=== PATIENT | male | born 1930 | race Caucasian/White ===

== ENCOUNTER 2018-07-10 19:50 | Emergency (ER) | payer MEDICARE ==
[~2018-07-10 19:50] MED LIST: Albuterol/Ipratropium 3.0-0.5 MG/3 ML Neb Soln NEB ONE; methylPREDNISolone Sodium Succinate 125 MG/2 ML SDV ONE
[2018-07-10] MEDS ORDERED: Albuterol 0.083% 2.5 MG/3 ML Neb Soln NEB ONE (19:59)
[2018-07-10 20:19] LABS: BICARBONATE,ARTERIAL 26.9 mm/L (22.0-26.0); O2 DELIVERY DEVICE AEROSOL MASK; O2 SATURATION ARTERIAL 99 % (95-98); PCO2 ARTERIAL 40 mm/Hg0 (35-45); PO2 ARTERIAL 133 mm/Hg (80-100)
[2018-07-10] MEDS ORDERED: Magnesium Sulfate/D5W 2 GM in Premix Bag 1 BAG IV ONE (20:21)
[2018-07-10] MEDS ORDERED: cefTRIAXone 1 GM Vial IVPUSH SCH (20:30)
[2018-07-10] MEDS ORDERED: Azithromycin 500 MG in Sodium Chloride 0.9% 250 ML IV SCH (20:30)
--- NOTE | 2018-07-10 20:48 | EDM.PDOC ---
ED HPI GENERAL MEDICAL PROBLEM - General Chief Complaint: Respiratory Problem Stated Complaint: COPD exacerbation. Pt. reports sob that started today, denies any fever or chills but admits to coughing up phlegm. reports pt. has used his albuterol inhaler 5-6 times without improvement. Denies any history of CHF. Denies coming in contact with anything new today. 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) - Related Data Allergies Allergy/AdvReac Type Severity Reaction Status Date / Time No Known Allergies Allergy Verified 07/10/18 20:36 Home Meds: Home Meds Aspirin [Halfprin] 81 mg PO DAILY 10/30/13 [History] Budesonide/Formoterol [Symbicort 160-4.5 Mcg Inhaler] 2 puff IH BID 01/09/14 [ History] Lisinopril/Hydrochlorothiazide [Lisinopril-Hctz 20-12.5 mg Tab] 1 tab PO BID [History] Albuterol Sulfate [Proair Hfa] 1 inh INH ASDIRECTED 07/10/18 [History] Albuterol/Ipratropium [DuoNeb 3.0-0.5 MG/3 ML] 1 inh INH TID 07/10/18 [History] Past Medical History Respiratory History: Reports: COPD Oncologic (Cancer) History: Reports: Non-Hodgkin's Lymphoma Social & Family History - Family History Family Medical History: Noncontributory ED ROS GENERAL - Review of Systems Review Of Systems: See Below Constitutional: Reports: No Symptoms HEENT: Reports: No Symptoms Respiratory: Reports: Shortness of Breath, Wheezing, Cough, Sputum Cardiovascular: Reports: No Symptoms Endocrine: Reports: No Symptoms GI/Abdominal: Reports: No Symptoms Musculoskeletal: Reports: No Symptoms Skin: Reports: No Symptoms Neurological: Reports: No Symptoms Psychiatric: Reports: No Symptoms Hematologic/Lymphatic: Reports: No Symptoms Immunologic: Reports: No Symptoms ED EXAM, GENERAL - Physical Exam Exam: See Below Exam Limited By: No Limitations General Appearance: Alert, WD/WN, No Apparent Distress Nose: Normal Inspection, Normal Mucosa, No Blood, Nasal Flaring Throat/Mouth: Normal Inspection, Normal Lips, Normal Teeth, Normal Gums, Normal Oropharynx, Normal Voice, No Airway Compromise Head: Atraumatic, Normocephalic Neck: Normal Inspection, Supple, Non-Tender Respiratory/Chest: Respiratory Distress, Decreased Breath Sounds, Wheezing, Stridor, Accessory Muscle Use, Retractions Cardiovascular: Normal Peripheral Pulses, Regular Rate, Rhythm, No Edema, No Gallop, No JVD, No Murmur, No Rub GI/Abdominal: Normal Bowel Sounds, Soft, Non-Tender, No Organomegaly, No Distention, No Abnormal Bruit, No Mass, Pelvis Stable Extremities: Normal Inspection, Normal Range of Motion, Non-Tender, No Pedal Edema, Normal Capillary Refill Neurological: Alert, Oriented, CN II-XII Intact, Normal Cognition, Normal Gait, No Motor/Sensory Deficits Psychiatric: Normal Affect, Normal Mood Skin Exam: Warm, Dry, Intact, Normal Color, No Rash EKG INTERPRETATION EKG Date: 07/10/18 Time: 20:51 Rhythm: NSR [place]: LAD-Left [place] Deviation ST-T: Other (nonspecific ST and T wave abnormality) QT: Prolonged Comparison: NA - No Prior EKG Course - Vital Signs Text/Narrative:: Pt. initially struggling to breath using acessory muscles and gasping for breath. Given 3 Duonebs, IV Solumedrol, Mag sulfate 2 gms, Rocephin, and Azithromax IV and breathing improved. Sats remained 98-99% on RA. At midnight patient began having stridor and difficulty breathing again. In agreement with transfer to larger hospital with ICU and specialist. Last Recorded V/S: Last Vital Signs Temp 36.4 C 07/10/18 21:06 Pulse 83 07/10/18 21:28 Resp 18 07/10/18 21:28 BP 134/77 07/10/18 21:28 Pulse Ox 93 L 07/10/18 21:28 - Orders/Labs/Meds Orders: Active Orders 24 hr Category Date Time Status EKG Documentation Completion [RC] STAT Care 07/10/18 20:17 Active RT Aerosol Therapy [RC] ASDIRECTED Care 07/10/18 20:00 Active RT Aerosol Therapy [RC] ASDIRECTED Care 07/10/18 20:59 Active Telemetry Monitoring [Cardiac Monitoring] [RC] . Care 07/10/18 19:50 Active DIRECTED CTA Chest W WO Contrast [Ang Chest] [CT] Stat Exams 07/10/18 20:43 Taken Chest 2V [CR] Stat Exams 07/10/18 19:57 Taken CULTURE BLOOD [BC] Stat Lab 07/10/18 20:45 Received CULTURE BLOOD [BC] Stat Lab 07/10/18 20:50 Received Azithromycin [Zithromax] 500 mg Med 07/10/18 20:30 Active Sodium Chloride 0.9% [Normal Saline] 250 ml IV Q24H cefTRIAXone [Rocephin] Med 07/10/18 20:30 Active 1 gm IVPUSH Q24H Blood Culture x2 Reflex Set [OM.PC] Stat Oth 07/10/18 20:31 Ordered Medication Orders Ceftriaxone Sodium (Rocephin) 1 gm IVPUSH Q24H YESENIA Last Admin: 07/10/18 20:43 Dose: 1 gm Azithromycin 500 mg/ Sodium (Chloride) 250 mls @ 250 mls/hr IV Q24H [facility] Last Admin: 07/10/18 20:43 Dose: 250 mls/hr Labs: Laboratory Tests 07/10/18 07/10/18 07/10/18 Range/Units 20:00 20:00 20:00 WBC 99.5 H* (5.0-10.0) 10^3/uL RBC 4.72 (4.50-6.00) 10^6/uL Hgb 13.8 L (14.0-18.0) g/dL Hct 41.9 (40.0-54.0) % MCV 88.8 (82.0-94.0) fL MCH 29.2 (27.0-32.0) pg MCHC 32.9 L (33.0-38.0) g/dL RDW Coeff of Manjinder 14.7 (11.0-15.0) % Plt Count 189 (150-400) 10^3/uL Add Manual Diff Yes Neutrophils % (Manual) 5 L (35-85) % Lymphocytes % (Manual) 94 H (21-55) % Monocytes % (Manual) 1 L (2-12) % Absolute Neutrophils 4.98 (1.80-7.00) 10^3/uL Lymphocytes # (Manual) 93.53 H (1.00-4.80) 10^3/uL Monocytes # (Manual) 1.00 H (0.00-0.80) 10^3/uL Smudge Cells Moderate H (NOT SEEN) D-Dimer, Quantitative 0.56 H (0.00-0.50) ABG pH (7.35-7.45) ABG pCO2 (35-45) mm/Hg0 ABG pO2 (80-100) mm/Hg ABG HCO3 (22.0-26.0) mm/L ABG O2 Saturation (95-98) % ABG Base Excess (-2.0-3.0) O2 Delivery Device Sodium 142 (136-145) mEq/L Potassium 3.7 (3.5-5.0) mEq/L Chloride 103 (98-106) mEq/L Carbon Dioxide 28 (21-32) mmol/L BUN 24 H (7-18) mg/dL Creatinine 1.5 H (0.7-1.3) mg/dL Est Cr Clr Drug Dosing 32.44 mL/min Estimated GFR (MDRD) 44 L (>=60) mL/min Glucose 122 H D (75-99) mg/dL Lactic Acid (0.4-2.0) mmol/L Calcium 8.6 (8.4-10.1) mg/dL Total Bilirubin 0.4 (0.0-1.0) mg/dL AST 20 (15-37) U/L ALT 33 (12-78) U/L Alkaline Phosphatase 103 (46-116) U/L Troponin I (0.00-0.06) ng/mL NT-Pro-B Natriuret Pep (0-1000) pg/mL Total Protein 7.3 (6.4-8.2) g/dL Albumin 3.9 (3.4-5.0) g/dL 07/10/18 07/10/18 07/10/18 Range/Units 20:00 20:05 20:29 WBC (5.0-10.0) 10^3/uL RBC (4.50-6.00) 10^6/uL Hgb (14.0-18.0) g/dL Hct (40.0-54.0) % MCV (82.0-94.0) fL MCH (27.0-32.0) pg MCHC (33.0-38.0) g/dL RDW Coeff of Manjinder (11.0-15.0) % Plt Count (150-400) 10^3/uL Add Manual Diff Neutrophils % (Manual) (35-85) % Lymphocytes % (Manual) (21-55) % Monocytes % (Manual) (2-12) % Absolute Neutrophils (1.80-7.00) 10^3/uL Lymphocytes # (Manual) (1.00-4.80) 10^3/uL Monocytes # (Manual) (0.00-0.80) 10^3/uL Smudge Cells (NOT SEEN) D-Dimer, Quantitative (0.00-0.50) ABG pH 7.44 (7.35-7.45) ABG pCO2 40 (35-45) mm/Hg0 ABG pO2 133 H (80-100) mm/Hg ABG HCO3 26.9 H (22.0-26.0) mm/L ABG O2 Saturation 99 H (95-98) % ABG Base Excess 3.0 (-2.0-3.0) O2 Delivery Device Aerosol mask Sodium (136-145) mEq/L Potassium (3.5-5.0) mEq/L Chloride (98-106) mEq/L Carbon Dioxide (21-32) mmol/L BUN (7-18) mg/dL Creatinine (0.7-1.3) mg/dL Est Cr Clr Drug Dosing mL/min Estimated GFR (MDRD) (>=60) mL/min Glucose (75-99) mg/dL Lactic Acid 1.4 (0.4-2.0) mmol/L Calcium (8.4-10.1) mg/dL Total Bilirubin (0.0-1.0) mg/dL AST (15-37) U/L ALT (12-78) U/L Alkaline Phosphatase (46-116) U/L Troponin I < 0.017 (0.00-0.06) ng/mL NT-Pro-B Natriuret Pep 71 (0-1000) pg/mL Total Protein (6.4-8.2) g/dL Albumin (3.4-5.0) g/dL Meds: Medications Generic Name Dose Route Start Last Admin Trade Name Freq PRN Reason Stop Dose Admin Ceftriaxone Sodium 1 gm 07/10/18 20:30 07/10/18 20:43 Rocephin IVPUSH 1 gm Q24H YESENIA Administration Azithromycin 500 mg/ Sodium 250 mls @ 250 mls/hr 07/10/18 20:30 07/10/18 20: 43 Chloride IV 250 mls/hr Q24H YESENIA Administration Discontinued Medications Generic Name Dose Route Start Last Admin Trade Name Bobby PRN Reason Stop Dose Admin Albuterol 2.5 mg 07/10/18 19:59 07/10/18 20:30 Proventil Neb Soln NEB 07/10/18 20:00 2.5 mg ONETIME ONE Administration Albuterol/Ipratropium 9 ml 07/10/18 19:50 07/10/18 19:50 Duoneb 3.0-0.5 Mg/3 Ml NEB 07/10/18 19:51 9 ml ONETIME ONE Administration Albuterol/Ipratropium Confirm 07/10/18 23:25 Duoneb 3.0-0.5 Mg/3 Ml Administered 07/10/18 23:26 Dose 3 ml .ROUTE .STK-MED ONE Magnesium Sulfate/Dextrose 2 200 mls @ 100 mls/hr 07/10/18 20:21 07/10/18 20: 30 gm/ Premix IV 07/10/18 22:20 100 mls/hr ONETIME ONE Administration Iopamidol 100 ml 07/10/18 20:49 07/10/18 20:56 Isovue-370 (76%) IVPUSH 07/10/18 20:50 100 ml ONETIME ONE Administration Methylprednisolone Sodium Succinate Confirm 07/10/18 19:44 07/10/18 20:30 Solu-Medrol Administered 07/10/18 19:45 125 mg Dose Administration 125 mg .ROUTE .STK-MED ONE Methylprednisolone Sodium Succinate Confirm 07/10/18 23:47 Solu-Medrol Administered 07/10/18 23:48 Dose 125 mg .ROUTE .STK-MED ONE - Radiology Interpretation Free Text/Narrative:: CXR: hyperinflation without infiltrate. CT Results Date: 07/10/18 (CTA: no pulmonary embolus; prominent mediastinal and hilar lymph nodes) CT Results Time: 23:51 Departure - Departure Time of Disposition: 00:01 Disposition: DC/Tfer to Acute Hospital 02 Condition: Fair Clinical Impression: COPD exacerbation, Lymphadenopathy - Discharge Information *PRESCRIPTION DRUG MONITORING PROGRAM REVIEWED*: Not Applicable *COPY OF PRESCRIPTION DRUG MONITORING REPORT IN PATIENT JOEY: Not Applicable Referrals: Mariam Fernandez PA-C [Primary Care Provider] - Forms: ED Department Discharge - Problem List & Annotations (1) COPD exacerbation SNOMED Code(s): 441196469 Code(s): J44.1 - CHRONIC OBSTRUCTIVE PULMONARY DISEASE W (ACUTE) EXACERBATION Status: Acute Current Visit: Yes - My Orders Last 24 Hours: My Active Orders 07/10/18 19:50 Telemetry Monitoring [Cardiac Monitoring] [RC] . DIRECTED 07/10/18 19:57 Chest 2V [CR] Stat 07/10/18 20:00 RT Aerosol Therapy [RC] ASDIRECTED 07/10/18 20:17 EKG Documentation Completion [RC] STAT 07/10/18 20:30 Azithromycin [Zithromax] 500 mg Sodium Chloride 0.9% [Normal Saline] 250 ml IV Q24H cefTRIAXone [Rocephin] 1 gm IVPUSH Q24H 07/10/18 20:31 Blood Culture x2 Reflex Set [OM.PC] Stat 07/10/18 20:43 CTA Chest W WO Contrast [Ang Chest] [CT] Stat 07/10/18 20:45 CULTURE BLOOD [BC] Stat 07/10/18 20:50 CULTURE BLOOD [BC] Stat 07/10/18 20:59 RT Aerosol Therapy [RC] ASDIRECTED - Assessment/Plan Last 24 Hours: My Active Orders 07/10/18 19:50 Telemetry Monitoring [Cardiac Monitoring] [RC] . DIRECTED 07/10/18 19:57 Chest 2V [CR] Stat 07/10/18 20:00 RT Aerosol Therapy [RC] ASDIRECTED 07/10/18 20:17 EKG Documentation Completion [RC] STAT 07/10/18 20:30 Azithromycin [Zithromax] 500 mg Sodium Chloride 0.9% [Normal Saline] 250 ml IV Q24H cefTRIAXone [Rocephin] 1 gm IVPUSH Q24H 07/10/18 20:31 Blood Culture x2 Reflex Set [OM.PC] Stat 07/10/18 20:43 CTA Chest W WO Contrast [Ang Chest] [CT] Stat 07/10/18 20:45 CULTURE BLOOD [BC] Stat 07/10/18 20:50 CULTURE BLOOD [BC] Stat 07/10/18 20:59 RT Aerosol Therapy [RC] ASDIRECTED Assessment:: COPD exacerbation Hx of non hodgkins lymphoma Prominent mediastinal and axillary lymph nodes. Plan: Will transfer to tertiary care center with ICU capability and specialist ie. Pulmonology, Oncology where patient can have further workup. Discussed benefits and risk of transfer including worsening condition, MVA, and patient verbalizes understanding. Patient accepted by Dr. Saldana, hospitalist at [facility].
[2018-07-10] MEDS ORDERED: Iopamidol 755 Mg/ML 100 ML Bottle IVPUSH ONE (20:49)
[2018-07-10] MEDS: Albuterol/Ipratropium 3.0-0.5 MG/3 ML Neb Soln ONE (23:44)
[2018-07-10] MEDS ORDERED: methylPREDNISolone Sodium Succinate 125 MG/2 ML SDV ONE (23:47)
[2018-07-11] MEDS ORDERED: Albuterol/Ipratropium 3.0-0.5 MG/3 ML Neb Soln NEB ONE (00:10)
[2018-07-11] MEDS ORDERED: methylPREDNISolone Sodium Succinate 125 MG/2 ML SDV IVPUSH SCH (00:15)
[2018-07-11 00:34] LABS: BICARBONATE,ARTERIAL 21.3 mm/L (22.0-26.0); O2 DELIVERY DEVICE ROOM AIR; O2 SATURATION ARTERIAL 92 % (95-98); PCO2 ARTERIAL 32 mm/Hg0 (35-45); PO2 ARTERIAL 62 mm/Hg (80-100)
[2018-07-11] MEDS: Albuterol/Ipratropium 3.0-0.5 MG/3 ML Neb Soln ONE (01:10)
== END 2018-07-11 00:30 ==
LOC: CC.ED 19:50
DX: J44.1 Chronic obstructive pulmonary disease with (acute) exacerbation (principal); R59.1 Generalized enlarged lymph nodes; Z79.82 Long term (current) use of aspirin
CPT/HCPCS: 36415; 36600; 71046; 71275; 80053; 82803; 83605; 83880; 84484; 85025; 85379; 87040; 93005; 93010; 94640; 96365; 96366; 96375; 96376; 99284; 99285; J0456; J0696; J2930; J3475; J7050; Q9967; J7613-GY; J7620-GY

== ENCOUNTER 2020-01-08 01:24 | Inpatient (IN) | payer MEDICARE, OTHER ==
[~2020-01-08 01:24] MED LIST changes: +Albuterol 8 GM Inhaler INH ONE; -Albuterol/Ipratropium 3.0-0.5 MG/3 ML Neb Soln NEB ONE; -methylPREDNISolone Sodium Succinate 125 MG/2 ML SDV ONE
[2020-01-08] MEDS ORDERED: Albuterol 8 GM Inhaler INH STA (01:32)
[2020-01-08] MEDS ORDERED: Aminophylline 250 MG/10 ML SDV IV ONE (01:51)
[2020-01-08] MEDS ORDERED: methylPREDNISolone Sodium Succinate 125 MG/2 ML SDV IVPUSH ONE (01:52)
[2020-01-08 01:56] LABS: O2 DELIVERY DEVICE ROOM AIR
--- NOTE | 2020-01-08 01:57 | EDM.PDOC ---
ED HPI GENERAL MEDICAL PROBLEM - General Chief Complaint: Respiratory Problem Stated Complaint: SOB Time Seen by Provider: 01/08/20 01:24 Source of Information: Reports: Patient, Family History Limitations: Reports: No Limitations - History of Present Illness INITIAL COMMENTS - FREE TEXT/NARRATIVE: Patient to the emergency department with his where he woke up complaining of severe shortness of breath just prior to arrival. The patient does have a history of COPD as well as non-Hodgkin's lymphoma. The patient advises that he did try to use his hand-held nebulizer treatment without success. The patient denies any chest pain pressure heaviness. He denies any ear, nose, or throat symptoms. He denies any fever chills he denies any recent travel and he denies being exposed to any ill people or anyone suspected of having COVID-19. The patient denies any abdominal pain no nausea vomiting he has had no diarrhea. Onset: Today, Sudden Location: Denies: Chest, Abdomen Severity: Severe Improves with: Reports: None Worsens with: Reports: None Associated Symptoms: Reports: Cough, Shortness of Breath. 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) (Attempted to use his hand-held nebulizer without success) - Related Data Allergies Allergy/AdvReac Type Severity Reaction Status Date / Time No Known Allergies Allergy Verified 07/10/18 20:36 Home Meds: Home Meds Budesonide/Formoterol [Symbicort 160-4.5 Mcg Inhaler] 2 puff IH BID 01/09/14 [ History] Lisinopril/Hydrochlorothiazide [Lisinopril-Hctz 20-12.5 mg Tab] 1 tab PO DAILY 01/09/14 [History] Albuterol Sulfate [Proair Hfa] 1 - 2 puff INH ASDIRECTED PRN 07/10/18 [History] Albuterol/Ipratropium [DuoNeb 3.0-0.5 MG/3 ML] 1 inh INH QID PRN 07/10/18 [ History] Past Medical History Cardiovascular History: Reports: Hypertension Respiratory History: Reports: COPD Musculoskeletal History: Reports: Back Pain, Chronic Oncologic (Cancer) History: Reports: Non-Hodgkin's Lymphoma - Past Surgical History Musculoskeletal Surgical History: Reports: Other (See Below) Other Musculoskeletal Surgeries/Procedures:: back surgery Social & Family History - Family History Family Medical History: Noncontributory - Tobacco Use Smoking Status *Q: Former Smoker Used Tobacco, but Quit: Yes Month/Year Tobacco Last Used: 30 yrs ago - Caffeine Use Caffeine Use: Reports: None - Living Situation & Occupation Living situation: Reports: , with Spouse Occupation: Retired ED ROS GENERAL - Review of Systems Review Of Systems: See Below Constitutional: Denies: Fever, Chills, Weakness HEENT: Reports: No Symptoms. Denies: Ear Pain, Nose Pain, Throat Pain Respiratory: Reports: Shortness of Breath, Wheezing, Cough Cardiovascular: Reports: No Symptoms. Denies: Chest Pain, Edema Endocrine: Reports: No Symptoms GI/Abdominal: Reports: No Symptoms. Denies: Abdominal Pain, Nausea, Vomiting Musculoskeletal: Reports: No Symptoms. Denies: Neck Pain, Back Pain Skin: Reports: No Symptoms. Denies: Bruising, Rash Neurological: Reports: No Symptoms. Denies: Confusion, Dizziness, Headache Psychiatric: Reports: No Symptoms ED EXAM, GENERAL - Physical Exam Exam: See Below Exam Limited By: No Limitations General Appearance: Alert, WD/WN, Moderate Distress Ears: Normal External Exam, Normal Canal, Normal TMs, Hearing Loss (Patient has bilateral hearing aids) Nose: Normal Inspection Throat/Mouth: Normal Inspection, Normal Lips, Normal Oropharynx, Normal Voice, No Airway Compromise Head: Atraumatic, Normocephalic Neck: Normal Inspection, Supple, Non-Tender, Full Range of Motion Respiratory/Chest: Respiratory Distress, Wheezing Cardiovascular: Normal Peripheral Pulses, Regular Rate, Rhythm Peripheral Pulses: 2+: Radial (L), Radial (R), Posterior Tibial (L), Posterior Tibial (R) GI/Abdominal: Soft, Non-Tender Back Exam: Normal Inspection, Full Range of Motion Extremities: Normal Inspection, Normal Range of Motion, Non-Tender, No Pedal Edema, Normal Capillary Refill. No: Pedro's Sign Neurological: Alert, Oriented, Normal Cognition, Normal Gait, No Motor/Sensory Deficits Psychiatric: Normal Affect, Anxious Skin Exam: Warm, Dry, Intact, Normal Color, No Rash EKG INTERPRETATION EKG Date: 01/08/20 Time: 01:30 Rhythm: NSR [place]: LAD-Left [place] Deviation P-Wave: Present QRS: Wide EKG Interpretation Comments: Twelve-lead EKG shows an underlying sinus tachycardia with a ventricular rate of 104 there is a left axis deviation as well as an incomplete left bundle branch block. There is significant amount of 60 cycle interference which makes this difficult to completely interpret. However there is no obvious ischemia or injury. There is 1 premature ventricular contraction. Course - Vital Signs Text/Narrative:: The patient was evaluated in the emergency department, the patient's white count is elevated at 13,000, general chemistries his blood sugar slightly elevated, potassium is down just a little bit at 3.3, magnesium is 1.6, and his PO2 is slightly down, see other lab works for complete details. Chest x-ray was completed and does not show any acute pneumonia. The patient is on O2 at 2 L nasal cannula with an oxygen saturation of 97%. Twelve-lead EKG showed a sinus tachycardia with a ventricular rate of 104. The patient was given Ventolin inhaler 2 puffs, Aminophyllin 250 mg IV over 30 minutes, and Solu- Medrol 125 mg IV push. The patient's lung sounds have improved and he appears to be resting more comfortable. I did discuss all of this with the patient's who is out in her vehicle and she understands and also agrees with admission as well as the the patient agrees with admission. The patient will be admitted with Rocephin 2 g IV now and 1 g every 24 hours he will also be given Solu-Medrol 80 mg every 8 hours as well as Ventolin MDI 4 times daily. The patient's treatment plan will be continuously evaluated and adjustments will be made as needed. The patient CBC does include smudge cells which the patient does have a history of non-Hodgkin's lymphoma. The patient's past medical history, past surgical history, past family medical history, social history is been reviewed see nursing notes for complete details Last Recorded V/S: Last Vital Signs Temp 36.8 C 01/08/20 01:43 Pulse 96 01/08/20 01:43 Resp 18 01/08/20 01:43 BP 151/99 H 01/08/20 01:43 Pulse Ox 95 01/08/20 01:43 - Orders/Labs/Meds Orders: Active Orders 24 hr Category Date Time Status EKG Documentation Completion [RC] STAT Care 01/08/20 01:30 Active RT Post Treatment Assessment [RC] Click to Edit Care 01/08/20 01:48 Active RT Pre-Treatment Assessment [RC] Click to Edit Care 01/08/20 01:48 Active Chest 1V Frontal [CR] Stat Exams 01/08/20 01:44 Ordered Aminophylline 250 mg Med 01/08/20 02:00 Active Sodium Chloride 0.9% [Normal Saline] 100 ml IV ONETIME EKG 12 Lead [EK] Stat Ther 01/08/20 01:46 Ordered Medication Orders Aminophylline 250 mg/ Sodium (Chloride) 110 mls @ 220 mls/hr IV ONETIME ONE Stop: 01/08/20 02:29 Last Admin: 01/08/20 02:11 Dose: 220 mls/hr Labs: Laboratory Tests 01/08/20 01/08/20 01/08/20 Range/Units 01:40 01:45 01:45 WBC 13.7 H (5.0-10.0) 10^3/uL RBC 5.00 (4.50-6.00) 10^6/uL Hgb 14.8 (14.0-18.0) g/dL Hct 43.2 (40.0-54.0) % MCV 86.4 (82.0-94.0) fL MCH 29.6 (27.0-32.0) pg MCHC 34.3 (33.0-38.0) g/dL RDW Coeff of Manjinder 13.8 (11.0-15.0) % Plt Count 181 (150-400) 10^3/uL Add Manual Diff Yes Neutrophils % (Manual) 11 L (35-85) % Band Neutrophils % 1 (0-5) % Lymphocytes % (Manual) 83 H (21-55) % Monocytes % (Manual) 2 (2-12) % Eosinophils % (Manual) 3 (0-5) % Smudge Cells Moderate H (NOT SEEN) ABG pH 7.44 (7.35-7.45) ABG pCO2 36 (35-45) mm/Hg0 ABG pO2 67 L (80-100) mm/Hg ABG HCO3 24.8 (22.0-26.0) mm/L ABG O2 Saturation 94 L (95-98) % ABG Base Excess 1.0 (-2.0-3.0) O2 Delivery Device Room air Sodium 142 (136-145) mEq/L Potassium 3.3 L (3.5-5.0) mEq/L Chloride 103 (98-106) mEq/L Carbon Dioxide 26 (21-32) mmol/L BUN 25 H (7-18) mg/dL Creatinine 1.1 (0.7-1.3) mg/dL Est Cr Clr Drug Dosing 43.18 mL/min Estimated GFR (MDRD) > 60 (>=60) mL/min Glucose 127 H (75-99) mg/dL Calcium 8.5 (8.4-10.1) mg/dL Magnesium 1.6 L (1.8-2.4) mg/dL Total Bilirubin 0.4 (0.0-1.0) mg/dL AST 17 (15-37) U/L ALT 25 (12-78) U/L Alkaline Phosphatase 128 H (46-116) U/L Troponin I < 0.017 (0.00-0.06) ng/mL NT-Pro-B Natriuret Pep 139 (0-1000) pg/mL Total Protein 7.1 (6.4-8.2) g/dL Albumin 3.8 (3.4-5.0) g/dL Meds: Medications Generic Name Dose Route Start Last Admin Trade Name Freq PRN Reason Stop Dose Admin Aminophylline 250 mg/ Sodium 110 mls @ 220 mls/hr 01/08/20 02:00 01/08/20 02: 11 Chloride IV 01/08/20 02:29 220 mls/hr ONETIME ONE Administration Discontinued Medications Generic Name Dose Route Start Last Admin Trade Name Freq PRN Reason Stop Dose Admin Albuterol Confirm 01/08/20 01:02 01/08/20 01:49 Ventolin Hfa Administered 01/08/20 01:03 Not Given Dose 8 gm INH .STK-MED ONE Albuterol 8 gm 01/08/20 01:32 01/08/20 01:32 Ventolin Hfa INH 01/08/20 01:33 2 puff STAT STA Administration Aminophylline 250 mg 01/08/20 01:51 Aminophylline IV 01/08/20 01:52 ONETIME ONE Methylprednisolone Sodium Succinate 125 mg 01/08/20 01:52 01/08/20 01:55 Solu-Medrol IVPUSH 01/08/20 01:53 125 mg ONETIME ONE Administration Departure - Departure Time of Disposition: 02:30 Disposition: Admitted As Inpatient 66 Condition: Good Clinical Impression: Hypomagnesemia - Discharge Information *PRESCRIPTION DRUG MONITORING PROGRAM REVIEWED*: Not Applicable *COPY OF PRESCRIPTION DRUG MONITORING REPORT IN PATIENT JOEY: Not Applicable Forms: ED Department Discharge Sepsis Event Note - Evaluation Sepsis Screening Result: No Definite Risk - Focused Exam Vital Signs: Vital Signs Temp Pulse Resp BP Pulse Ox 01/08/20 01:43 36.8 C 96 18 151/99 H 95 01/08/20 01:24 36.3 C 106 H 24 H 175/98 H 92 L Date Exam was Performed: 01/08/20 Time Exam was Performed: 02:17 - Problem List & Annotations (1) Hypomagnesemia SNOMED Code(s): 189044128 Code(s): E83.42 - HYPOMAGNESEMIA Status: Acute Priority: Medium Current Visit: Yes (2) Leukocytosis SNOMED Code(s): 662900996, 936539216 Code(s): D72.829 - ELEVATED WHITE BLOOD CELL COUNT, UNSPECIFIED Status: Acute Priority: Medium Current Visit: Yes (3) COPD exacerbation SNOMED Code(s): 588345698 Code(s): J44.1 - CHRONIC OBSTRUCTIVE PULMONARY DISEASE W (ACUTE) EXACERBATION Status: Acute Priority: High Current Visit: No (4) Hypokalemia SNOMED Code(s): 36499944 Code(s): E87.6 - HYPOKALEMIA Status: Acute Priority: Medium Current Visit: Yes - Problem List Review Problem List Initiated/Reviewed/Updated: Yes - My Orders Last 24 Hours: My Active Orders 01/08/20 01:30 EKG Documentation Completion [RC] STAT 01/08/20 01:44 Chest 1V Frontal [CR] Stat 01/08/20 01:46 EKG 12 Lead [EK] Stat 01/08/20 01:48 RT Post Treatment Assessment [RC] Click to Edit RT Pre-Treatment Assessment [RC] Click to Edit 01/08/20 02:00 Aminophylline 250 mg Sodium Chloride 0.9% [Normal Saline] 100 ml IV ONETIME - Assessment/Plan Admission H&P: Please use this note as an admission H&P Last 24 Hours: My Active Orders 01/08/20 01:30 EKG Documentation Completion [RC] STAT 01/08/20 01:44 Chest 1V Frontal [CR] Stat 01/08/20 01:46 EKG 12 Lead [EK] Stat 01/08/20 01:48 RT Post Treatment Assessment [RC] Click to Edit RT Pre-Treatment Assessment [RC] Click to Edit 01/08/20 02:00 Aminophylline 250 mg Sodium Chloride 0.9% [Normal Saline] 100 ml IV ONETIME Plan: As above
[2020-01-08 01:58] LABS: BICARBONATE,ARTERIAL 24.8 mm/L (22.0-26.0); O2 SATURATION ARTERIAL 94 % (95-98); PCO2 ARTERIAL 36 mm/Hg0 (35-45); PO2 ARTERIAL 67 mm/Hg (80-100)
[2020-01-08 02:11] LABS: CHLORIDE,CL 103 mEq/L (98-106); SODIUM,NA 142 mEq/L (136-145)
[2020-01-08] MEDS ORDERED: Magnesium Sulfate/D5W 2 GM in Premix Bag 1 BAG IV ONE (02:18)
[2020-01-08] MEDS ORDERED: Acetaminophen 325 MG Tab PO PRN (02:40)
[2020-01-08] MEDS ORDERED: cefTRIAXone 2 GM Vial IVPUSH ONE (02:40)
[2020-01-08] MEDS ORDERED: NS + KCl 20mEq/L 1,000 ML IV SCH (02:45)
[2020-01-08] MEDS ORDERED: Enoxaparin 40 MG/0.4 ML Syringe SUBCUT ONE (03:15)
[2020-01-08] MEDS: methylPREDNISolone Sodium Succinate 125 MG/2 ML SDV IVPUSH SCH ×3 (03:22→18:15)
[2020-01-08] MEDS: Hydrochlorothiazide 12.5 MG Cap PO SCH (07:15)
[2020-01-08] MEDS: Lisinopril 20 MG Tab PO SCH (07:16)
[2020-01-08] MEDS ORDERED: Non-Formulary Medication 1 Each (Lisinopril/Hydrochlorothiazide [Lisinopril-Hctz 20-12.5 M PO SCH (08:00)
[2020-01-08] MEDS ORDERED: Non-Formulary Medication 1 Each (Budesonide/Formoterol 2 PUFF) IH SCH (08:00)
[2020-01-08] MEDS ORDERED: Azithromycin 500 MG in Sodium Chloride 0.9% 250 ML IV SCH (10:00)
[2020-01-08] MEDS: Potassium Chloride 10 MEQ Tab.ER PO SCH (10:20)
[2020-01-08] MEDS: Albuterol 8 GM Inhaler INH SCH ×4 (10:22→20:18)
[2020-01-08] MEDS: BUDESONIDE IH SCH ×2 (11:39→20:06)
[2020-01-08] MEDS: FORMOTEROL IH SCH ×2 (11:39→20:06)
--- NOTE | 2020-01-08 13:14 | PN ---
DATE: 01/08/2020 S: The patient is an 89-year-old male admitted early this morning by Dr. Will for COPD exacerbation, woke up early in the morning with difficulty breathing and respiratory distress. When he arrived here, he was saturating in the low 90s and working very hard to breathe. He was hypokalemic and hypomagnesemic. Otherwise, labs and x-ray looked fine. He was admitted for COPD exacerbation. He has known COPD and non-Hodgkin's lymphoma. He has been started on IV antibiotic, steroids, and nebulizers, and this morning, he feels much better than he did upon his arrival. Never met this gentleman before. O: GENERAL: He is pleasant and cooperative. HEENT: Grossly benign. NECK: Neck veins are nondistended. LUNGS: Sounds are diminished in all [place]. He has inspiratory and expiratory wheezes, but reasonably adequate air movement. CARDIAC: Regular. ABDOMEN: Appears nontender. EXTREMITIES: No peripheral edema seen. ASSESSMENT: 1. CHRONIC OBSTRUCTIVE PULMONARY DISEASE EXACERBATION. 2. NON-HODGKIN'S LYMPHOMA. 3. HYPOKALEMIA. 4. HYPOMAGNESEMIA. P: We will recheck his mag level today. He is getting IV potassium at this time. I am going to add Zithromax to his regimen. He was started on IV Solu- Medrol. We will try to get a sputum culture. Otherwise, no new changes. ARNOL/WISAM /[id number]
[2020-01-08] MEDS ORDERED: Enoxaparin 40 MG/0.4 ML Syringe SUBCUT SCH (21:00)
[2020-01-09] MEDS ORDERED: cefTRIAXone 1 GM Vial IVPUSH SCH (02:00)
[2020-01-09] MEDS: methylPREDNISolone Sodium Succinate 125 MG/2 ML SDV IVPUSH SCH ×3 (02:47→17:59)
[2020-01-09] MEDS: FORMOTEROL IH SCH ×2 (07:25→19:56)
[2020-01-09] MEDS: BUDESONIDE IH SCH ×2 (07:25→19:56)
[2020-01-09] MEDS: Albuterol 8 GM Inhaler INH SCH ×4 (07:25→19:56)
[2020-01-09] MEDS: Azithromycin 500 MG in Sodium Chloride 0.9% 250 ML IV SCH (07:26)
[2020-01-09] MEDS: Hydrochlorothiazide 12.5 MG Cap PO SCH (07:26)
[2020-01-09] MEDS: Lisinopril 20 MG Tab PO SCH (07:26)
[2020-01-09] MEDS: Potassium Chloride 10 MEQ Tab.ER PO SCH (07:27)
[2020-01-09 07:31] LABS: CHLORIDE,CL 108 mEq/L (98-106); SODIUM,NA 142 mEq/L (136-145)
[2020-01-09] MEDS ORDERED: Calcium Carbonate 500 MG Tab.Chew PO ONE (08:51)
--- NOTE | 2020-01-09 10:54 | PN ---
DATE: 01/09/2020 S: Mr. Saab is doing well. He was admitted for COPD exacerbation. He has had a nice response over the last 36 hours. He feels like his breathing is getting close back to normal. He is ambulating in the hallways, not requiring supplemental O2. No fevers over the last 48 hours. O: VITAL SIGNS: Have been stable. GENERAL: On exam, he is pleasant, alert, and cooperative. HEENT: Grossly benign. NECK: Supple. LUNGS: Slightly diminished, but minimal end-expiratory wheezing now and overall markedly improved air movement. CARDIAC: Tones are regular. ABDOMEN: No abdominal pain. EXTREMITIES: No peripheral edema. ASSESSMENT: 1. CHRONIC OBSTRUCTIVE PULMONARY DISEASE EXACERBATION. 2. HISTORY OF LYMPHOMA. 3. HYPOKALEMIA. 4. HYPOMAGNESEMIA. P: The patient's lab work from this morning is reviewed. His potassium is back to normal. His magnesium level is fine, and other than his white count being elevated from the steroids, everything looks stable. If things go well, plan on him getting home tomorrow. ARNOL/WISAM /[id number]
[2020-01-09] MEDS ORDERED: Enoxaparin 40 MG/0.4 ML Syringe SUBCUT SCH (20:00)
[2020-01-10] MEDS ORDERED: cefTRIAXone 1 GM Vial IVPUSH SCH
[2020-01-10] MEDS: methylPREDNISolone Sodium Succinate 125 MG/2 ML SDV IVPUSH SCH ×2 (01:52→10:50)
[2020-01-10] MEDS: BUDESONIDE IH SCH (08:07)
[2020-01-10] MEDS: FORMOTEROL IH SCH (08:07)
[2020-01-10] MEDS: Lisinopril 20 MG Tab PO SCH (08:07)
[2020-01-10] MEDS: Potassium Chloride 10 MEQ Tab.ER PO SCH (08:07)
[2020-01-10] MEDS: Azithromycin 500 MG in Sodium Chloride 0.9% 250 ML IV SCH (08:08)
[2020-01-10] MEDS: Albuterol 8 GM Inhaler INH SCH ×2 (08:08→11:56)
[2020-01-10] MEDS: Hydrochlorothiazide 12.5 MG Cap PO SCH (08:08)
--- NOTE | 2020-01-10 09:51 | DISCH ---
ADMISSION DIAGNOSES: 1. Chronic obstructive pulmonary disease exacerbation. 2. History of lymphoma. 3. Hypokalemia. 4. Hypomagnesemia. DISCHARGE DIAGNOSIS: 1. CHRONIC OBSTRUCTIVE PULMONARY DISEASE EXACERBATION. 2. HISTORY OF LYMPHOMA. 3. HYPOKALEMIA. 4. HYPOMAGNESEMIA. HISTORY: The patient is pleasant 89-year-old with known chronic obstructive pulmonary disease. He woke up on the morning of admission with respiratory distress and shortness of breath, wheezing. He was evaluated by Dr. Salvador Will, had a negative chest x-ray. He was treated with appropriate cares in the emergency room and already had some improvement and was ultimately admitted to the hospital for a chronic obstructive pulmonary disease exacerbation. At the time of admission, he had a slightly elevated white count, stable blood gas, and was hypokalemic and hypomagnesemic. HOSPITAL COURSE: The patient was given IV replacement of both his magnesium and potassium. Both of those have corrected and are stable. He was put on IV antibiotics, IV steroids, and given appropriate pulmonary cares including nebulizer therapy with a wonderful response. He is saturating in the mid 90s on room air. He has not spiked any temperatures. He is able to ambulate without dropping his sats, and for the most part, he feels like he is back to his baseline. He has finished 3 days of IV Rocephin and Zithromax. We will send him home on a short outpatient course of prednisone and finish the course of Ceftin. His primary care provider is Mariam Fernandez, who is not in the office for followup in the next weeks, so I will see him back for a recheck in the next week. He will continue all of his prior pulmonary cares and finish his Ceftin and prednisone. COMPLICATIONS DURING STAY: None. CONSULTATIONS: None. DISPOSITION: Discharged home. TORSTEN /[id number]
== END 2020-01-10 12:41 | disposition home or self-care (01) | DRG 192 ==
LOC: CC.ED 01:24 → CC.MS 02:21 → UNDOADMIN 02:36
PROVIDERS: ADMIT Nurse Practitioner; ATTEND Family Medicine
DX: J44.1 Chronic obstructive pulmonary disease with (acute) exacerbation (principal); I10 Essential (primary) hypertension; D72.829 Elevated white blood cell count, unspecified; E83.42 Hypomagnesemia; E87.6 Hypokalemia; Z79.899 Other long term (current) drug therapy; Z85.72 Personal history of non-Hodgkin lymphomas; Z87.891 Personal history of nicotine dependence
CPT/HCPCS: 36415; 36600; 71045; 80053; 82803; 83735; 83880; 84484; 85025; 93005; 93010; 94640; 96365; 96375; 99285-25; A9270-GY; J0280; J0456; J0696; J1650; J2930; J3475; J3480; J7050